=== PATIENT | male | born 2000 | race Caucasian/White ===

== ENCOUNTER 2023-06-05 18:26 | Emergency (ER) | payer MEDICAID ==
[~2023-06-05] VITALS: Ht 182.9 cm; Wt 118.0 kg
[2023-06-05] MEDS ORDERED: DIF150T PO (20:03)
[2023-06-05] MEDS ORDERED: CEPH500C3 PO (20:03)
[2023-06-05 20:28] VITALS: BP 136/68; PULSE 78; RESP 18; TEMP 98.5; O2SAT 98
== END 2023-06-05 20:30 | disposition home or self-care (01) ==
LOC: ER 18:27
DX: B35.4 Tinea corporis (principal); L08.89 Other specified local infections of the skin and subcutaneous tissue; Z79.899 Other long term (current) drug therapy
CPT/HCPCS: 99283